=== PATIENT | male | born 1990 | race African-American/Black ===

== ENCOUNTER 2020-10-15 14:08 | Emergency (ER) | payer OTHER ==
[~2020-10-15] VITALS: Ht 175.3 cm; Wt 70.3 kg
[2020-10-15 14:32] VITALS: BP 101/64
--- NOTE | 2020-10-15 14:36 | NUR ---
ED Nurse Note: Patient from home and walked in due to left side CP since this morning. Walked in to ER with steady gait, AAO x4, VSS at this time, has 100% on RA
[2020-10-15] MEDS ORDERED: Ketorolac 30mg Inj IV ONE (14:45)
--- NOTE | 2020-10-15 14:51 | Emergency Room Report ---
History of Present Illness General Chief Complaint: Chest Pain Source: Patient Present Illness HPI 30-year-old male with no significant past medical history here complaining of sudden onset of left-sided chest pain explaining it as stabbing with referral to the left arm. Denies any abdominal pain, shortness of breath, nausea vomiting, headache or dizziness. Reports that he smokes marijuana daily basis. Denies any tobacco smoke alcohol intake at this time. Denies diarrhea, loss of taste and smell. Denies any cardiac history. Has not taken medication for symptom relief. Denies history of anxiety. Allergies: Coded Allergies: No Known Allergies (Unverified , 10/15/20) COVID-19 Screening Contact w/high risk pt: No Experienced COVID-19 symptoms?: No COVID-19 Testing performed INBOUND TELEMARKETER: No Patient History Past Medical History: see triage record Past Surgical History: none Pertinent Family History: none Social History: Reports: drug use - Marijuana Immunizations: UTD Reviewed Nursing Documentation: PMH: Agreed; PSxH: Agreed Nursing Documentation-PMH Past Medical History: No Stated History Review of Systems All Other Systems: negative except mentioned in HPI Physical Exam Vital Signs Date Time Temp Pulse Resp B/P (MAP) Pulse Ox O2 Delivery O2 Flow Rate FiO2 10/15/20 14:26 98.2 60 16 101/64 (76) 100 Room Air Sp02 EP Interpretation: reviewed, normal General Appearance: alert, non-toxic, mild distress Head: normocephalic, atraumatic Eyes: bilateral eye normal inspection, bilateral eye PERRL ENT: hearing grossly normal, normal pharynx, no angioedema, normal voice Neck: full range of motion, supple/symm/no masses Respiratory: chest non-tender, lungs clear, normal breath sounds, speaking full sentences Cardiovascular #1: regular rate, rhythm, no edema Cardiovascular #2: 2+ carotid (R), 2+ carotid (L), 2+ radial (R), 2+ radial (L), 2+ dorsalis pedis (R), 2+ dorsalis pedis (L) Gastrointestinal: normal bowel sounds, non tender, soft, non-distended, no guarding, no rebound Genitourinary: no CVA tenderness Musculoskeletal: back normal, no calf tenderness Neurologic: alert, motor strength/tone normal, oriented x3, sensory intact, responsive, speech normal Psychiatric: judgement/insight normal, memory normal, mood/affect normal, no suicidal/homicidal ideation Skin: no rash Lymphatic: no adenopathy Medical Decision Making PA Attestation All diagnoses and treatment plans were reviewed and discussed with my supervising physician Dr. Foster Diagnostic Impression: Primary Impression: Chest pain ER Course 30-year-old male with no significant past medical history here complaining of sudden onset of left-sided chest pain explaining it as stabbing with referral to the left arm. Denies any abdominal pain, shortness of breath, nausea vomiting, headache or dizziness. Reports that he smokes marijuana daily basis. Denies any tobacco smoke alcohol intake at this time. Denies diarrhea, loss of taste and smell. Denies any cardiac history. Has not taken medication for symptom relief. Denies history of anxiety. Ddx considered but are not limited to: ME, Angina, COPD, GERD, Vital signs: are WNL, pt. is afebrile H&PE are most consistent with chest pain ORDERS: EKG, Chest XR, troponin, CBC, CMP, UA, tox screen, motrin, pepcid ED INTERVENTIONS: NS bolus, Zofran, Pepcid and Toradol DISCHARGE: At this time pt. is stable for d/c to home. Will provide printed patient care instructions, and any necessary prescriptions. Care plan and follow up instructions have been discussed with the patient prior to discharge. Avoid using marijuana, take medication as directed, follow primary care provider for referral to second steward, if worsening symptoms return to the emergency room EKG Diagnostic Results Rate: normal Rhythm: NSR ST Segments: no acute changes Other Impression No acute ST changes ASA given to the pt in ED: No Chest X-Ray Diagnostic Results Chest X-Ray Diagnostic Results : Chest X-Ray Ordered: Yes # of Views/Limited/Complete: 1 View Indication: Chest Pain EP Interpretation: Yes PA Xray: Interpretation reviewed, by supervising MD, and agrees with findings. Interpretation: no consolidation, no effusion, no pneumothorax, no acute cardiopulmonary disease Impression: No acute disease Electronically Signed by: Karuna Vinson PA-C Last Vital Signs Date Time Temp Pulse Resp B/P (MAP) Pulse Ox O2 Delivery O2 Flow Rate FiO2 10/15/20 14:32 60 16 Room Air 10/15/20 14:32 98.2 101/64 100 Disposition: HOME, SELF-CARE Condition: Stable Patient Instructions: Nonspecific Chest Pain, Heartburn Additional Instructions: Avoid using marijuana, take medication as directed, follow primary care provider for referral to second steward, if worsening symptoms return to the emergency room Karuna Lindsey Oct 15, 2020 14:51
[2020-10-15 15:08] LABS: BASOPHILS % (AUTO) 1.3 % (0.0-2.0); EOSINOPHILS % (AUTO) 2.5 % (0.0-3.0); HEMOGLOBIN 15.3 G/DL (14.2-18.0); LYMPHOCYTES % (AUTO) 39.1 % (20.0-45.0); MEAN CORPUSCULAR VOLUME 94 FL (80-99); MONOCYTES % (AUTO) 4.8 % (1.0-10.0); NEUTROPHILS % (AUTO) 52.3 % (45.0-75.0); PLATELET COUNT 177 K/UL (150-450); RED CELL DISTRIBUTION WIDTH 11.8 % (11.6-14.8); WHITE BLOOD COUNT 5.1 K/UL (4.8-10.8)
[2020-10-15 15:23] LABS: ANION GAP 4 mmol/L (5-15); BLOOD UREA NITROGEN 9 mg/dL (7-18); CALCIUM 8.7 MG/DL (8.5-10.1); CARBON DIOXIDE 31 MMOL/L (21-32); CHLORIDE 105 MMOL/L (98-107); POTASSIUM 3.9 MMOL/L (3.5-5.1); SODIUM 140 MMOL/L (136-145)
[2020-10-15 15:28] LABS: ALANINE AMINOTRANSFERASE 10 U/L (12-78); ALBUMIN 4.1 G/DL (3.4-5.0); ALBUMIN/GLOBULIN RATIO 1.2 (1.0-2.7); ALKALINE PHOSPHATASE 48 U/L (46-116); ASPARTATE AMINO TRANSFERASE 18 U/L (15-37); BILIRUBIN,TOTAL 0.6 MG/DL (0.2-1.0)
[2020-10-15 15:31] LABS: APPEARANCE,URINE CLEAR; BILIRUBIN, URINE NEGATIVE (NEGATIVE); GLUCOSE, URINE (UA) NEGATIVE (NEGATIVE); KETONES,URINE NEGATIVE (NEGATIVE); NITRITE,URINE NEGATIVE (NEGATIVE); PH,URINE 7 (4.5-8.0); PROTEIN,URINE 1+ (NEGATIVE); UROBILINOGEN,URINE 4 MG/DL (0.0-1.0)
[2020-10-15 15:50] LABS: COLOR,URINE YELLOW; LEUKOCYTE ESTERASE ,URINE TRACE (NEGATIVE)
[2020-10-15] MEDS ORDERED: FAMOTIDINE20 MG ORAL (16:19)
[2020-10-15] MEDS ORDERED: IBUPROFEN600 M1 ORAL (16:19)
[2020-10-15 16:31] VITALS: BP 101/64
--- NOTE | 2020-10-15 16:31 | NUR ---
ER DISCHARGE NOTE: Patient is cleared to be discharged per ERMD, pt is aox4, on room air, with stable vital signs. pt was given dc and prescription instructions, pt was able to verbalize understanding, pt id band and iv site removed without complications. pt is able to ambulate with steady gait. pt took all belongings.
--- NOTE | 2020-10-15 18:09 | Diagnostic Imaging Report ---
Indication: Chest pain Technique: One view of the chest Comparison: none Findings: Lungs and pleural spaces are clear. Heart size is normal. Impression: No acute process
== END 2020-10-15 16:32 | disposition home or self-care (01) ==
LOC: EMR 14:45
DX: R07.9 Chest pain, unspecified (principal)
CPT/HCPCS: 36415; 71045; 80053; 80307; 81003; 84484; 85025; 93005; 96361; 96374; 96375; J1885; J2405; J7030; Z7502; 99284